=== PATIENT | male | born 1970 | race Caucasian/White ===

== ENCOUNTER 2020-02-14 11:40 | Emergency (ER) | payer BC ==
[2020-02-14] MEDS ORDERED: Sodium Chloride 0.9% 1,000 ML IV ONE (11:51)
[2020-02-14] MEDS ORDERED: Morphine 2 MG/ML SYRINGE IVPUSH ONE (11:53)
--- NOTE | 2020-02-14 12:37 | CT ---
EXAMINATION: Abdomen Pelvis wo Cont SEX: Male AGE: 49 years CLINICAL HISTORY: 49-year-old male with acute onset (2 hours) lower abdominal pain (unable to void). INTERPRETATION: Abnormal. 1. *Tiny 1 mm diameter punctate CALCIFICATION located dependently urinary bladder (distal ureter/trigone?), on the right, identified on axial slice #146, coronal slice #66, sagittal #75. 2. Subtle dilatation ipsilateral right ureter and right renal pelvis suggesting recently passed stone. 3. A slightly larger right kidney. No other evidence of nephrolithiasis. No obstructive uropathy on the left. 4. Unenhanced gallbladder, liver, stomach, spleen, pancreas and adrenal glands unremarkable. 5. Symmetric homogeneously dense prostate gland. Normal seminal vesicles. Normal urinary bladder. 6. No sign of pelvic or abdominal mass lesion, mesenteric or retroperitoneal lymphadenopathy, inflammatory "dirty" peritoneal fat, mechanical bowel obstruction, ascites or free intraperitoneal air. 7. Lung bases clear. Chronic severe lower lumbar L5-S1 disc disease and marginal spondylosis spine. CONCLUSION: Recently "passed" urolith (STONE), on the right.
[2020-02-14 13:01] LABS: ANION GAP 13.3 mEq/L (7-13)
[2020-02-14] MEDS ORDERED: Tamsulosin 0.4 MG Cap.ER PO ONE (14:34)
[2020-02-14] MEDS ORDERED: Ketorolac 30 MG/ML SDV IVPUSH ONE (14:34)
--- NOTE | 2020-02-14 14:44 | EDM.PDOC ---
ED HPI GENERAL MEDICAL PROBLEM - General Chief Complaint: Abdominal Pain Stated Complaint: LOWER AB PAIN [id number] Time Seen by Provider: 02/14/20 14:25 Source of Information: Reports: Patient History Limitations: Reports: No Limitations - History of Present Illness INITIAL COMMENTS - FREE TEXT/NARRATIVE: This 49 yo male patient reports to the ED with right lower quadrant pain and difficulties urinating. The patient reports he was on top of a grain bin when his pain started. Onset: Today Duration: Constant Location: Reports: Abdomen, Back (right flank) Quality: Reports: Ache, Sharp, Stabbing Severity: Severe Improves with: Reports: None Worsens with: Reports: None Context: Reports: Other Associated Symptoms: Reports: No Other Symptoms - Related Data Allergies Allergy/AdvReac Type Severity Reaction Status Date / Time Penicillins Allergy Rash Verified 02/14/20 11:48 Home Meds: Home Meds lisinopriL [Lisinopril] 20 mg PO DAILY 02/14/20 [History] ED ROS GENERAL - Review of Systems Review Of Systems: Comprehensive ROS is negative, except as noted in HPI. ED EXAM, RENAL/ - Physical Exam Exam: See Below Exam Limited By: No Limitations General Appearance: Alert, WD/WN, Moderate Distress Eye Exam: Bilateral Eye: EOMI, Normal Inspection, PERRL Ears: Normal External Exam, Normal Canal, Hearing Grossly Normal, Normal TMs Nose: Normal Inspection, Normal Mucosa, No Blood Throat/Mouth: Normal Inspection, Normal Lips, Normal Teeth, Normal Gums, Normal Oropharynx, Normal Voice, No Airway Compromise Head: Atraumatic, Normocephalic Neck: Normal Inspection, Supple, Non-Tender, Full Range of Motion Respiratory/Chest: No Respiratory Distress, Lungs Clear, Normal Breath Sounds, No Accessory Muscle Use, Chest Non-Tender Cardiovascular: Normal Peripheral Pulses, Regular Rate, Rhythm, No Edema, No Gallop, No JVD, No Murmur, No Rub GI/Abdominal: Normal Bowel Sounds, No Organomegaly, No Distention, No Abnormal Bruit, No Mass, Pelvis Stable, Tender (lower abdomen) (Male) Exam: Deferred Rectal (Males) Exam: Deferred Back Exam: CVA Tenderness (R) Extremities: Normal Inspection, Normal Range of Motion, Non-Tender, Normal Capillary Refill, No Pedal Edema Neurological: Alert, Oriented, CN II-XII Intact, Normal Cognition, Normal Gait, Normal Reflexes, No Motor/Sensory Deficits Psychiatric: Normal Affect, Normal Mood Skin Exam: Warm, Dry, Intact, Normal Color, No Rash Lymphatic: No Adenopathy Course - Vital Signs Last Recorded V/S: Last Vital Signs Temp 35.9 C L 02/14/20 14:12 Pulse 56 L 02/14/20 14:12 Resp 20 02/14/20 14:12 BP 176/78 H 02/14/20 14:12 Pulse Ox 100 02/14/20 14:12 - Orders/Labs/Meds Labs: Laboratory Tests 02/14/20 02/14/20 02/14/20 Range/Units 12:12 12:29 12:29 WBC 10.8 H (5.0-10.0) 10^3/uL RBC 5.59 (4.6-6.2) 10^6/uL Hgb 16.3 (14.0-18.0) g/dL Hct 46.6 (40.0-54.0) % MCV 83.4 (80-100) fL MCH 29.2 (27.0-34.0) pg MCHC 35.0 (33.0-35.0) g/dL Plt Count 189 (150-450) 10^3/uL Neut % (Auto) 81.9 H (42.2-75.2) % Lymph % (Auto) 12.2 L (20.5-50.1) % [place] % (Auto) 4.8 (2-8) % Eos % (Auto) 0.9 L (1.0-3.0) % Baso % (Auto) 0.2 (0.0-1.0) % Sodium 145 (136-145) mmol/L Potassium 4.3 (3.5-5.1) mmol/L Chloride 106 (98-107) mmol/L Carbon Dioxide 30 (21-32) mmol/L Anion Gap 13.3 H (7-13) mEq/L BUN 14 (7-18) mg/dL Creatinine 1.36 H (0.70-1.30) mg/dL Est Cr Clr Drug Dosing 75.07 mL/min Estimated GFR (MDRD) 56 BUN/Creatinine Ratio 10.3 (No establ ref range) Glucose 172 H (74-99) mg/dL Calcium 8.6 (8.5-10.1) mg/dL Total Bilirubin 0.6 (0.2-1.0) mg/dL AST 21 (15-37) U/L ALT 38 (16-63) U/L Alkaline Phosphatase 106 (46-116) U/L Total Protein 7.5 (6.4-8.2) g/dL Albumin 4.2 (3.4-5.0) g/dL Globulin 3.3 Albumin/Globulin Ratio 1.3 Amylase 77 (25-115) U/L Lipase 194 (73-393) U/L Urine Color Yellow (YELLOW) Urine Appearance Clear (CLEAR) Urine pH 6.0 (5.0-9.0) Ur Specific [place] 1.025 (1.005-1.030) Urine Protein Trace H (NEGATIVE) Urine Glucose (UA) Negative (NEGATIVE) Urine Ketones Negative (NEGATIVE) Urine Occult Blood Trace-lysed H (NEGATIVE) Urine Nitrite Negative (NEGATIVE) Urine Bilirubin Negative (NEGATIVE) Urine Urobilinogen 0.2 (0.2-1.0) mg/dL Ur Leukocyte Esterase Negative (NEGATIVE) Urine RBC 0-5 /HPF Urine WBC Not seen (0-5/HPF) /HPF Ur Epithelial Cells Rare (NOT SEEN) /HPF Urine Bacteria Not seen (0-FEW/HPF) /HPF Meds: Medications Discontinued Medications Generic Name Dose Route Start Last Admin Trade Name Freq PRN Reason Stop Dose Admin Sodium Chloride 1,000 mls @ 999 mls/hr 02/14/20 11:51 02/14/20 11:58 Normal Saline IV 02/14/20 12:51 999 mls/hr .BOLUS ONE Administration Ketorolac Tromethamine 30 mg 02/14/20 14:34 Toradol IVPUSH 02/14/20 14:35 ONETIME ONE Morphine Sulfate 2 mg 02/14/20 11:53 02/14/20 11:58 Morphine IVPUSH 02/14/20 11:54 2 mg ONETIME ONE Administration Tamsulosin HCl 0.4 mg 02/14/20 14:34 Flomax PO 02/14/20 14:35 ONETIME ONE Departure - Departure Time of Disposition: 14:40 Disposition: Home, Self-Care 01 Condition: Fair Clinical Impression: Kidney stone on right side - Discharge Information *PRESCRIPTION DRUG MONITORING PROGRAM REVIEWED*: Not Applicable *COPY OF PRESCRIPTION DRUG MONITORING REPORT IN PATIENT REJI: Not Applicable Instructions: Kidney Stones, [id number] Referrals: Bianca Palmer PA-C [Primary Care Provider] - Care Plan Goals: The patient was advised of the examination, lab and CT results during the visit. The patient was given a dose of Morphine, IV fluids, IV Toradol and an oral dose of Flomax while in the ED. The patient was discharged with a script for Toradol (10 mg) #20 to take 1 by mouth every 6 hours as needed and Flomax (0.4 mg) #7 to take 1 by mouth daily. The patient should increase his oral fluid intake. If the patient has any additional symptoms or concerns, the patient should either return to the emergency department or visit his primary care facility or return to the emergency department. Sepsis Event Note (ED) - Evaluation Sepsis Screening Result: No Definite Risk - Focused Exam Vital Signs: Vital Signs Temp Pulse Resp BP Pulse Ox 02/14/20 14:12 35.9 C L 56 L 20 176/78 H 100 02/14/20 11:51 35.9 C L 61 23 H 207/108 H 100
== END 2020-02-14 15:09 | disposition home or self-care (01) ==
LOC: DL.ED 11:40
DX: N20.0 Calculus of kidney (principal); Z88.0 Allergy status to penicillin; Z79.899 Other long term (current) drug therapy
CPT/HCPCS: 36415; 74176; 80053; 81001; 82150; 83690; 85025; 96361; 96374; 96375; 99284; A9270; J1885; J2270; J7030